=== PATIENT | female | born 1975 | race Caucasian/White ===

== ENCOUNTER 2017-04-11 12:06 | Emergency (ER) | END 2017-04-11 15:45 | disposition home or self-care (01) | DX: H57.12 Ocular pain, left eye (principal) ==

== ENCOUNTER 2017-06-24 17:15 | Emergency (ER) | payer OTHER ==
[~2017-06-24] VITALS: Ht 162.6 cm; Wt 73.0 kg
[~2017-06-24 17:15] MED LIST: SULF15DR19 LEFT EYE
[2017-06-24 17:22] VITALS: Ht 162.6 cm; Wt 73.0 kg
[2017-06-24] MEDS ORDERED: METOCLOPRAMIDE 10 MG INJ IV ONE (20:00)
[2017-06-24] MEDS ORDERED: DIPHENHYDRAMINE 50 MG INJ IV ONE (20:00)
[2017-06-24] MEDS ORDERED: SOD CHLORIDE 0.9% 500 ML IV ONE (20:00)
[2017-06-24] MEDS ORDERED: FENTAnyl 50 MCG/ML VIAL IV ONE (21:00)
[2017-06-24] MEDS ORDERED: CARB200T3 PO (22:26)
[2017-06-24] MEDS ORDERED: HYDR-902 PO (22:26)
--- NOTE | 2017-06-24 22:32 | ERD ---
ER Documentation Chief Complaint Chief Complaint right facial pain x 2 days HPI 42-year-old female comes in with severe shooting right facial pain for 2 days. Also has pain along the right temporal area that goes back into her head. States that she has had headaches on the side of her head before. Denies any visual deficits or neurological symptoms. Does have some nausea. Denies fevers or chills. Denies trauma ROS All systems reviewed and are negative except as per history of present illness. Medications Home Meds Active Scripts Hydrocodone/Acetaminophen ([place] 10-325 Tablet) 1 Each Tablet, 1 EACH PO Q6 for PAIN, #20 TAB Prov:WILLIAN NEFF DO 06/24/17 Carbamazepine (Carbamazepine) 200 Mg Tablet, 200 MG PO Q12, #60 TAB Prov:WILLIAN NEFF DO 06/24/17 Sulfacetamide Sodium* (Bleph-10*) 10%-15 Ml Opht Drops, 1 DROP LEFT EYE Q2H, #1 EA Prov:RAAD LEAVITT PA-C 04/11/17 Allergies Allergies: Coded Allergies: No Known Allergy (Unverified , 04/11/17) PMhx/Soc Medical and Surgical Hx: pt denies Medical Hx, pt denies Surgical Hx Hx Alcohol Use: No Hx Substance Use: No Hx Tobacco Use: No Smoking Status: Never smoker Physical Exam Vitals Vital Signs Date Time Temp Pulse Resp B/P Pulse Ox O2 Delivery O2 Flow Rate FiO2 06/24/17 20:49 74 17 113/69 97 Room Air 06/24/17 17:22 97.7 74 18 136/74 99 Physical Exam Const: [] Moderate distress Head: Atraumatic Eyes: Normal Conjunctiva, EOMI, PERRLA ENT: Normal External Ears, Nose and Mouth. Neck: Full range of motion.. Abd: Soft, non tender, non distended. Normal bowel sounds Skin: No petechiae or rashes Neur: Awake and alert and oriented 3, no focal deficits Psych: Normal Mood and Affect Results 24 hrs Current Medications Medications (Trade) Dose Ordered Sig/Issa Route PRN Reason Start Time Stop Time Status Last Admin Dose Admin Sodium Chloride (NS) 500 ml @ 500 mls/hr Q1H ONCE IV 06/24/17 20:00 06/24/17 20:59 DC 06/24/17 19:50 Metoclopramide HCl (Reglan) 10 mg ONCE ONCE IV 06/24/17 20:00 06/24/17 20:01 DC 06/24/17 19:50 Diphenhydramine HCl (Benadryl) 12.5 mg ONCE ONCE IV 06/24/17 20:00 06/24/17 20:01 DC 06/24/17 19:50 Fentanyl (Sublimaze) 50 mcg ONCE ONCE IV 06/24/17 21:00 06/24/17 21:01 DC 06/24/17 21:01 Procedures/MDM Trigeminal neuralgia much more likely than complex migraine. This is an unfortunate diagnosis. Patient was initially given a migraine cocktail of 10 mg Reglan, 12.5 mg IV Benadryl, 500 cc of IV fluid. She said this took the pain down from a 10 to a 7 and resolve the nausea. I had not attempted to tap on the trigeminal ganglion with the patient when she was having acute 10 of 10 symptoms. I then did this test which reproduced intolerable shooting pain down her face. She was then given morphine for the pain which resolved the pain. I am going to discharge her with carbamazepine 200 mg twice daily as well as [place] and instructions to follow-up with a neurosurgeon or neurologist through her primary care doctor, which she does have, within the next week. I have very low suspicion for subarachnoid hemorrhage or glaucoma Departure Diagnosis: Primary Impression: Trigeminal neuralgia of right side of face Condition: Fair Patient Instructions: Trigeminal Neuralgia Additional Instructions: Call your primary care doctor TOMORROW for an appointment with a neurologist or neurosurgeon within the next week.See the doctor sooner or return here if your condition worsens before your appointment time. WILLIAN NEFF DO Jun 24, 2017 22:32
[2017-06-24 22:39] VITALS: BP 108/62; PULSE 66; RESP 16
== END 2017-06-24 22:40 | disposition home or self-care (01) ==
LOC: E/R 17:15
DX: G50.0 Trigeminal neuralgia (principal)
CPT/HCPCS: 96374; 96375; 99284; J1200; J2765; J3010; J7040